=== PATIENT | female | born 1965 | race Caucasian/White ===

== ENCOUNTER 2021-10-08 07:43 | Emergency (ER) | payer BC, SELFPAY ==
[2021-10-08 07:47] VITALS: PULSE 58; RESP 16; TEMP 36.3; O2SAT 98
--- NOTE | 2021-10-08 08:00 | DI.RAD_ITS ---
Exam(s) XR HIP RT COMPLETE AP PELVIS EXAM: XR HIP RT COMPLETE AP PELVIS CLINICAL HISTORY: groin pain. TECHNIQUE: 2D digital imaging was performed. COMPARISON: No exams were available for comparison FINDINGS: Two views There is no evidence of hip fracture nor hip joint space narrowing. On the right side there is a 6 x 3 millimeter osteophytic density immediately subjacent to the ischia l tuberosity. Correlation with any history of hamstrings attachment site injury is recommended. Sim ilar finding is not seen on the opposite-left side IMPRESSION: DATA REPOSITORY: RADIATION DOSE DELIVERED:
--- NOTE | 2021-10-08 08:00 | DI.US_ITS ---
Exam(s) US LOWER EXTREMITY VENOUS RT EXAM: US LOWER EXTREMITY VENOUS RT CLINICAL HISTORY: inner thigh pain TECHNIQUE: Grayscale, color, and doppler imaging of the deep venous system of the right lower extrem ity was performed. COMPARISON: No exams were available for comparison FINDINGS: There is no evidence of intraluminal thrombus and there is normal compression and augmentation demons trated within the common femoral vein, femoral vein, and popliteal vein. In the ipsilateral calf the interrogated veins also exhibit normal compression/ augmentation properti es. The ipsilateral saphenofemoral junction is patent. There is apparently an area of pain in the right groin and scanning of this area did not reveal focal abnormality on ultrasound exam. IMPRESSION: 1. No evidence of DVT in the right lower extremity. DATA REPOSITORY:
--- NOTE | 2021-10-08 08:28 | W.ED.GENAD ---
Discharge Plan Disposition Patient Disposition: HOME Condition: Good Discharge Details Clinical Impression: Right groin pain Primary Care Provider: Unknown,Unknown ED Provider: Noman Sousa Home Meds and New Rx's Prescriptions: New ibuprofen [IBU] 600 mg tablet 600 mg PO QID PRN (Reason: pain) Qty: 20 0RF cyclobenzaprine 5 mg tablet 5 mg PO TID PRN (Reason: muscle spasm) Qty: 10 0RF Discharge Instructions Instructions: Leg Pain (ED) Additional Instructions: Please return immediately to the emergency department for any persistent new or worsening symptoms. Also if you have a change in condition or further concerns you may also return for reassessment. As discussed please rest over the next 10 days, use warm compresses instructions and then slowly increase your activity as tolerated by discomfort. If not improving in the next 2 weeks please call the orthopedic office and arrange follow-up appointment for reevaluation. Referrals: [facility] [Provider Group] - 2 weeks (If not improving call orthopedic office for follow-up appointment and reassessment) Medical Decision Making Patient presenting to the emergency department for chief complaint of right inner thigh pain. She states this started approximately 1 week ago and has intermittent sharp pain to the inner groin that lasts for 15 to 30 seconds and then goes away. Patient denies any precipitating events such as injury or trauma, long car rides or trips, surgery. Patient has utilized ibuprofen which has not been helpful. Patient's past medical history is unremarkable and patient is otherwise fit and healthy with only recent event was a running event that she did 2 weeks ago. Physical exam is unremarkable with normal cardiac and respiratory exam, no reproducible pain to palpation of inner right thigh full range of motion, full ambulation, unable to reproduce discomfort. We will plan on performing ultrasound of right inner groin along with right hip and pelvis x-ray. Patient denies any pain or discomfort at this time but was informed to let us know if she starts having discomfort so that analgesia could be ordered. Coronary report from pathology technologist shows no signs of deep vein thrombosis and no obvious soft tissue abnormality noted. Plain film imaging does show some calcifications which when discussing with patient correlates to previous hamstring injury about 6 months ago. Suspect possible musculoskeletal type injury including the patient is a and did have running event 2 weeks ago so will recommend NSAID, prescribed trial of Flexeril, along with stretching and rest from exercise over the next 10 days with slowly increasing activity as tolerated. Will give patient number for orthopedist if not improving in the next 2 weeks otherwise she does not have a primary care provider follow-up with pleasant overall healthy medical history. After discussion of diagnosis and plan of care patient has no further needs, questions, or concerns and states clear understanding to return to the emergency department for any worsening symptoms. Imaging Data Radiologic Study: Imaging: X-Ray Radiologist's impression: There is no evidence of hip fracture nor hip joint space narrowing. On the right side there is a 6 x 3 millimeter osteophytic density immediately subjacent to the ischial tuberosity. Correlation with any history of hamstrings attachment site injury is recommended. Similar finding is not seen on the opposite-left side Radiologic Study #2: Imaging: Ultrasound Radiologist's impression: IMPRESSION: 1. No evidence of DVT in the right lower extremity. HPI General Mode of arrival: ambulatory. Date/Time Provider Initiated Documentation: 10/08/21 08:01. Limitations to Documentation: no limitations. Information obtained by: patient and RN notes reviewed. History of Present Illness 56 year old F presents to the emergency department with the chief complaint of Right groin pain, described as moderate and severe, Quality is described as sharp, and is localized to the right and lower extremity. Patient distal. Patient started experiencing this week(s) (1) and it has been intermittent. No relieving factors improve symptom(s), No exacerbating factors reported . Patient notes no other symptoms.. Patient did receive the following treatments prior to arrival, NSAID Related Data Home Medications Medication Instructions Recorded Confirmed cyclobenzaprine 5 mg tablet 5 mg PO TID PRN muscle spasm #10 10/08/21 tabs ibuprofen 600 mg tablet (IBU) 600 mg PO QID PRN pain #20 tabs 10/08/21 Previous Rx's Medication Instructions Recorded cyclobenzaprine 5 mg tablet 5 mg PO TID PRN muscle spasm #10 10/08/21 tabs ibuprofen 600 mg tablet (IBU) 600 mg PO QID PRN pain #20 tabs 10/08/21 Allergies Allergy/AdvReac Type Severity Reaction Status Date / Time No Known Allergies Allergy Unverified 10/08/21 07:57 General Stated Complaint: Orthopedic JARED: 4 Review of Systems Constitutional Constitutional: Denies chills, Denies fever(s) and Denies headache(s) ENT Ears, Nose, Mouth, and Throat: Denies headache(s) Cardiovascular Cardiovascular: Denies chest pain, Denies syncope, Denies irregular heart rhythm, Denies claudication, Denies leg edema, Denies lightheadedness and Denies dyspnea Respiratory Respiratory: Denies dyspnea Gastrointestinal Gastrointestinal: Denies abdominal pain Musculoskeletal Musculoskeletal: Reports as per HPI, Denies arthralgias, Denies muscle cramps and Denies muscle weakness Neurologic Neurologic: Denies syncope, Denies headache(s), Denies sensory deficit and Denies paresthesias PFSH All Active Problems (Updated 10/08/21 @ 10:30 by Noman Sousa NP) Right groin pain (Acute) Social History Smoking/Tobacco Use Status: Never Smoking risk assessment performed?: Yes Alcohol Intake: current Alcohol Intake frequency: a few times a week Alcohol type: wine Drug use: Never Substance use type: does not use Do you feel safe at home: Yes Do you feel safe in your relationship?: Yes Exam Const General: cooperative, healthy appearing, comfortable and no acute distress Orientation: alert, awake and oriented x3 Resp Effort & Inspection: normal respiratory effort and able to speak in complete sentences Auscultation: clear to auscultation bilaterally Cardio Rate: regular rate Rhythm: regular rhythm Heart Sounds: S1 normal and S2 normal Pulses: normal peripheral pulses Neuro General: patient alert, patient awake, patient oriented x3, moves all extremities and no focal motor deficits Extrem Right lower extremity: normal to inspection, full ROM, normal capillary refill and hip/thigh Details: normal to inspection; no tenderness, no swelling, no ecchymosis and no unusual warmth Left lower extremity: normal to inspection, full ROM and normal capillary refill Course Vital Signs Vital signs: Vital Signs Temperature 36.3 C L 10/08/21 07:47 Pulse 58 L 10/08/21 07:47 Respiratory Rate 16 10/08/21 07:47 Pulse Oximetry 98 10/08/21 07:47 Temperature 36.3 C L 10/08/21 07:47 Pulse 58 L 10/08/21 07:47 Respiratory Rate 16 10/08/21 07:47 Respiratory Effort 10/08/21 07:58 Pulse Oximetry 98 10/08/21 07:47 Oxygen Delivery Method Room Air 10/08/21 07:47 Oxygen Flow Rate 0 10/08/21 07:47 End Tidal Co2 98 10/08/21 07:47 Pain Level 2 10/08/21 07:47 Comment 10/08/21 07:47
--- NOTE | 2021-10-08 10:24 | NUR.NOTE ---
Provider updated pt with results. awaiting dispo plan
[2021-10-08 10:35] VITALS: BP 107/73; PULSE 51; RESP 14; O2SAT 98
== END 2021-10-08 10:40 | disposition home or self-care (01) ==
PROVIDERS: Emergency Provider Nurse Practitioner Family
DX: R10.31 Right lower quadrant pain (principal); M79.651 Pain in right thigh
CPT/HCPCS: 99284; 73502; 93971; 99283

== ENCOUNTER 2022-07-29 10:27 | Outpatient (CLI) | payer BC, SELFPAY ==
[2022-07-29 15:57] LABS: Abs Immature Grans 0.01 10^3/uL (0.0-0.06); Absolute Basophil Count 0.03 10^3/uL (0.0-0.2); Absolute Eosinophil Count 0.03 10^3/uL (0.0-0.7); Absolute Lymphocyte Count 1.68 10^3/uL (1.2-3.4); Absolute Monocyte Count 0.21 10^3/uL (0.1-0.8); Absolute Neutrophil Count 4.36 10^3/uL (1.2-6.7); Basophils % 0.5; Eosinophils % 0.5; HCT 47.2 % (36.0-46.0); HGB 16.1 g/dL (11.2-15.7); Immature Grans % 0.2; Lymphocytes % 26.6; MCH 32.2 pg (27.0-33.0); MCHC 34.1 % (32.0-36.0); MCV 94 fL (80-95); Monocytes % 3.3; Neutrophils % 68.9; Platelet Count 274 10^3/uL (130-400); RDW 11.4 % (11.7-14.6); RDW-SD 39.1 fL; WBC 6.32 10^3/uL (4.4-10.8)
[2022-07-29 16:53] LABS: Hemoglobin A1C 5.7 % (<5.7)
[2022-07-29 16:58] LABS: ALT 31 U/L (14-59); AST 19 U/L (15-37); Albumin 4.3 g/dL (3.4-5.0); Alkaline Phosphatase 83 U/L (46-116); Anion Gap 8.1 mmol/L (3-11); BUN 23 mg/dL (7-18); Bilirubin, Total 0.3 mg/dL (0.2-1.0); CO2 30.9 mmol/L (21.0-32.0); CREATININE 0.8 mg/dL (0.55-1.02); Calcium 9.9 mg/dL (8.5-10.1); Calculated LDL 82 mg/dL (<100); Chloride 102 mmol/L (98-107); Cholesterol 171 mg/dL (<200); Estimated GFR 85.35 (mL/min/1.73m2); Glucose 95 mg/dL (74-106); HDL Cholesterol 82 mg/dL (40-60); Potassium 4.7 mmol/L (3.5-5.1); Sodium 141 mmol/L (136-145); TSH 0.74 uIU/mL (0.36-3.74); Total Protein 7.4 g/dL (6.4-8.2); Triglyceride 39 mg/dL (<150)
[2022-08-03 10:51] LABS: Insulin <3.0 uIU/mL (<29.0)
== END 2022-07-29 10:28 | disposition home or self-care (01) ==
LOC: LBO 10:29
DX: Z00.00 Encounter for general adult medical examination without abnormal findings (principal)
CPT/HCPCS: 36415; 80053; 80061; 83036; 83525; 84443; 85025

== ENCOUNTER 2024-04-18 14:46 | Emergency (ER) | payer BC, SELFPAY ==
[2024-04-18 14:51] VITALS: BP 121/81; PULSE 83; RESP 15; TEMP 36.6; O2SAT 99
[2024-04-18] MEDS: Methocarbamol 500 MG TAB 1000 MG PO (15:22)
[2024-04-18] MEDS: Ibuprofen 600 MG TAB PO (15:22)
[2024-04-18] MEDS: MORPHine IR 15 MG TAB PO (15:23)
--- NOTE | 2024-04-18 15:49 | DI.RAD_ITS ---
Exam(s) XR SHOULDER RT COMPLETE 2+V EXAM: XR SHOULDER RT COMPLETE 2+V CLINICAL HISTORY: PAIN. TECHNIQUE: 2D digital imaging was performed. COMPARISON: No exams were available for comparison FINDINGS: Five views. No evidence of acute fracture or dislocation no abnormal soft tissue calcifications. Subacromial spa ce appears unremarkable. Glenohumeral and AC joints appear unremarkable. Ipsilateral clavicle appea rs unremarkable. There appears to be slight widening of the AC joint. IMPRESSION: Slight widening of the AC joint this age group but without offset. Correlation with site of tenderne ss is recommended. No other significant osseous findings in the shoulder. DATA REPOSITORY: RADIATION DOSE DELIVERED:
--- NOTE | 2024-04-18 15:58 | ED.GENADUL_ITS ---
Discharge Plan Disposition Patient Disposition: Home Condition: Stable Discharge Details Clinical Impression: Acute pain of right shoulder, AC separation Primary Care Provider: Winter Norman ED Provider: Zamzam Cornejo Home Meds and New Rx's Prescriptions: New lidocaine [Lidoderm] 5 % adhesive patch,medicated 1 patch topical DAILY PRN (Reason: pain) Qty: 15 0RF Rx Instructions: leave on most painful area for up to 12 hrs No Action ibuprofen [IBU] 600 mg tablet 600 mg PO QID PRN (Reason: pain) Qty: 20 0RF Discharge Instructions Instructions: Shoulder Pain ED Additional Instructions: * xray imaging does not reveal an acute abnormality of the bones of your arm/shoulder. your AC space is slightly widened and could be the cause of your pain. * an outpatient MRI has been ordered for you to further evaluation. they will contact you to schedule this exam. you can follow up with your PCP for results * you can move shoulder as tolerated and should do gentle range of motion movements to prevent a frozen shoulder * you can wear the sling for comfort * you should take motrin and tylenol for pain. pain patches may be helpful and a prescription has been sent to pharmacy HPI General Date/Time Provider Initiated Documentation: 04/18/24 15:05 . Limitations to Documentation: no limitations . Information obtained by: patient . HPI Narrative: 59-year-old female without significant past medical history presents for evaluation of acute onset right shoulder pain. Patient reports that she was do ing lateral arm exercises and raises with 5 pound weights. She reports that she had an immediate onset of pain in the right shoulder. She states that it just does not feel right. She did not hear a pop. She reports that the pain is worse with any movement. It is not associated with any numbness or tingling. Related Data Home Medications ?Medication ?Instructions ?Recorded ?Confirmed ibuprofen 600 mg tablet (IBU) 600 mg PO QID PRN pain #20 tabs 10/08/21 04/18/24 lidocaine 5 % topical patch 1 patch topical DAILY PRN pain #15 04/18/24 (Lidoderm) ea Previous Rx's ?Medication ?Instructions ?Recorded ibuprofen 600 mg tablet (IBU) 600 mg PO QID PRN pain #20 tabs 10/08/21 lidocaine 5 % topical patch 1 patch topical DAILY PRN pain #15 04/18/24 (Lidoderm) ea Allergies Allergy/AdvReac Type Severity Reaction Status Date / Time No Known Allergies Allergy Unverified 04/18/24 14:54 General Stated Complaint: Orthopedic JARED: 4 Exam Narrative Exam Narrative: Review of Systems: All systems reviewed & are unremarkable except as noted in HPI and below Well-developed, crying NCAT PERRL, normal conjunctiva RRR Unlabored respiratory effort Right clavicle intact nontender Right shoulder without dislocation or deformity, neurovascularly intact, good cap refill, patient is holding it straight and hanging down. She reports pain worse with anterior extension, less pain with lateral raise. Course Vital Signs Vital signs: Vital Signs Temperature 36.6 C 04/18/24 14:51 Pulse 83 04/18/24 14:51 Respiratory Rate 15 04/18/24 14:51 Blood Pressure 121/81 04/18/24 14:51 Pulse Oximetry 99 04/18/24 14:51 Temperature 36.6 C 04/18/24 14:51 Pulse 83 04/18/24 14:51 Respiratory Rate 15 04/18/24 14:51 Respiratory Effort Normal 04/18/24 14:55 Blood Pressure 121/81 04/18/24 14:51 Blood Pressure Position Sitting 04/18/24 14:51 Pulse Oximetry 99 04/18/24 14:51 Oxygen Delivery Method Room Air 04/18/24 14:51 Oxygen Flow Rate 0 04/18/24 14:51 Pain Level 10 04/18/24 15:23 Medical Decision Making 6 emergent evaluation of acute right shoulder pain. Low suspicion for fracture, no evidence of dislocation on examination. Could be ligamentous or internal derangement. She is neurovascularly intact. She is crying, very anxious about how she is going to be able to do her job. She took no pain medication prior to arrival. Will give pain medication and get x-ray imaging though I suspect this will be unremarkable and that she will ultimately need MRI for further diagnostic evaluation. X-ray imaging does demonstrate some mild AC separation, but otherwise no bony abnormality. A sling was provided for comfort. Lidocaine patches were sent to the pharmacy. An outpatient MRI has been ordered as the patient does not have a PCP to arrange this. She should follow-up in the emergency department as needed. If MRI is abnormal she will be referred to orthopedics. Quality:SDOH Health Related Social Needs: No Data to Display PFSH All Active Problems (Updated 04/18/24 @ 16:09 by Zamzam Cornejo MD) AC separation (Acute) Acute pain of right shoulder (Acute) Social History Smoking/Tobacco Use Status: Never Smoking risk assessment performed?: Yes Alcohol Intake: current Alcohol Intake frequency: a few times a week Alcohol type: wine Drug use: Never Substance use type: does not use Do you feel safe at home: Yes Do you feel safe in your relationship?: Yes
[2024-04-18] MEDS: Lidocaine 5% Patch 1 PATCH TP (16:23)
[2024-04-18 16:27] VITALS: BP 100/66; PULSE 59; RESP 15; TEMP 36.6; O2SAT 99
--- NOTE | 2024-04-19 10:33 | NUR.NOTE ---
Nursing Note: Noman from the patients insurance company called asking a few questions about why she needs an outpatient MRI in an attempt to get a prior authorization covered. I answered his questions to the best of my ability and he stated that unfortunately he would not be able to approve the prior authorization. Call transferred back to Saba Thomas to determine the next steps with the insurance.
== END 2024-04-18 16:29 | disposition home or self-care (01) ==
PROVIDERS: Emergency Provider Emergency Medicine; PCP Family Medicine
DX: S43.101A Unspecified dislocation of right acromioclavicular joint, initial encounter (principal); Y93.B9 Activity, other involving muscle strengthening exercises
CPT/HCPCS: 99283; 73030